=== PATIENT | male | born 1980 | race Caucasian/White ===

== ENCOUNTER 2024-07-20 00:14 | Emergency (ER) | payer MEDICAID, SELFPAY ==
--- NOTE | ~2024-07-20 | XR_ITS ---
EXAMINATION: XR HAND/WRIST, RIGHT CLINICAL INFORMATION: Pain COMPARISON: None available. TECHNIQUE: PA, lateral, and oblique views of the right hand and wrist. FINDINGS: The bones and soft tissues are normal. No fracture. A cyst is present in the navicular. Alignment is anatomic. Joint spaces are maintained. No erosions or soft tissue calcifications. XR/XR hand wrist RT IMPRESSION: Normal right hand and wrist. Electronically signed by: Charly Almazan MD 07/20/2024 01:20 AM NAVJOT HOLLAND
[2024-07-20 00:20] VITALS: BP 110/79; PULSE 91; RESP 16; TEMP 36.9; O2SAT 98; BMI 23.2
--- NOTE | 2024-07-20 03:14 | ED_ITS ---
HPI - Extremity Problem General Chief complaint: Extremity Injury, Upper Stated complaint: right hand injury Time Seen by Provider: 07/20/24 02:37 Source: patient Mode of arrival: ambulatory Limitations: no limitations History of Present Illness ED Provider: HPI Narrative: Apparently patient is trying to change the care manually put his hand between the machine tight spot 3 days ago since then complaining of pain in the right hand and wrist times swelling no deformity no other injuries Related Data Previous Rx's ?Medication ?Instructions ?Recorded ibuprofen 600 mg tablet 600 mg PO Q6H PRN fever or pain 07/20/24 #30 tabs oxycodone 5 mg tablet 5 mg PO Q6H PRN pain #20 tabs 07/20/24 Allergies Allergy/AdvReac Type Severity Reaction Status Date / Time mushroom Allergy Severe ANAPHYLAXIS Verified 07/20/24 00:24 onion [Onion] Allergy Severe ANAPHYLAXIS Verified 07/20/24 00:24 amoxicillin [Amoxicillin] Allergy Unknown RASH Verified 07/20/24 00:24 aspirin [Aspirin] Allergy Unknown DIFF Verified 07/20/24 00:24 BREATHING Penicillins Allergy Unknown RASH Verified 07/20/24 00:24 PEPPERS Allergy Severe ANAPHYLAXIS Uncoded 07/20/24 00:24 Review of Systems 2 Review of Systems: Yes all other systems are reviewed and are negative PMFSH Social History Social History Advance Directives: No Do you have a plan to hurt others: No Plan Physical Exam 2 Vital Signs: Vital Signs: Last Vital Signs Temp 98.5 F 07/20/24 03:36 Pulse 91 07/20/24 03:36 Resp 16 07/20/24 03:36 BP 110/79 07/20/24 03:36 Pulse Ox 98 07/20/24 03:36 O2 Del Method Room Air 07/20/24 03:36 BMI result Body Mass Index 23.2 Extrem: Elbow/forearm/wrist images: 1. Diffuse tenderness and soft tissue swelling no deformity neurovascular intact Medications Administered Discontinued Medications Generic Name Dose Route Start Last Admin Trade Name Freq PRN Reason Stop Dose Admin Oxycodone HCl 10 mg 07/20/24 03:14 07/20/24 03:30 Oxycodone Hcl Immed Release 5 Mg Tablet PO 07/20/24 03:15 10 mg ONCE ONE Administration Medical Decision Making Medical Decision Making [facility] Narrative: Patient with right hand/wrist contusion from working in the right spot wrist splint was applied pain medication was given x-ray negative for fracture Independent Interpretation I performed an independent interpretation of an: Plain X-Ray Interpretation: No fracture Discharge Plan Discharge Clinical Impression: Sprain and strain of wrist Patient Disposition: Home, Self-Care Instructions: Wrist Sprain (ED) Additional Instructions: Wear the splint for support Continue your pain medication Take ibuprofen for inflammation Prescriptions: New ibuprofen 600 mg tablet 600 mg PO Q6H PRN (Reason: fever or pain) Qty: 30 0RF oxycodone 5 mg tablet 5 mg PO Q6H PRN (Reason: pain) Qty: 20 0RF Rx Instructions: Partial Fill upon patient request. Interventions: ED Discharge Assessment Last Done: 07/20/24 03:36 Discharge Date/Time: 07/20/24 03:37 Print Language: Cymro
[2024-07-20] MEDS: oxyCODONE HCl Immed Release 5 MG TABLET 10 MG PO (03:30)
[2024-07-20 03:36] VITALS: BP 110/79; PULSE 91; RESP 16; TEMP 36.9; O2SAT 98
== END 2024-07-20 03:37 | disposition home or self-care (01) ==
PROVIDERS: Emergency Provider Internal Medicine; PCP Physician Assistant
DX: S63.501A Unspecified sprain of right wrist, initial encounter (principal); M25.531 Pain in right wrist; X58.XXXA Exposure to other specified factors, initial encounter; Y93.89 Activity, other specified; Y92.89 Other specified places as the place of occurrence of the external cause; Y99.8 Other external cause status
CPT/HCPCS: 29125; 73110; 73130; 99283; 99284

== ENCOUNTER 2025-03-10 18:40 | Emergency (ER) | payer MEDICAID, SELFPAY ==
--- NOTE | ~2025-03-10 | CT_ITS ---
CLINICAL HISTORY: periumbilical pain, eval for hernia CT abdomen and pelvis with contrast Comparison: None provided Findings: The lung bases are clear. The liver, gallbladder, spleen, pancreas, kidneys and adrenal glands are normal in appearance. There is wall thickening of the sigmoid colon and rectum over a fairly long segment. There also appears to be a segmental area of wall thickening in the ascending colon. Small bowel loops are normal caliber without bowel wall thickening. No small bowel obstruction. No abdominal wall hernia. No ascites. Normal appendix. No acute fracture. IMPRESSION: Segmental areas of wall thickening involving the ascending colon, sigmoid colon and rectum. Differential includes infectious or inflammatory colitis. This document has been electronically signed by: Chano Mancera MD on 03/11/2025 01:31:45
[2025-03-10 19:09] VITALS: BP 160/90; PULSE 111; RESP 16; TEMP 36.8; O2SAT 95; BMI 23.8
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
[2025-03-10 20:16] LABS: MANUAL DIFF FLAG NO
[2025-03-10 20:18] LABS: Hematocrit 42.7 % (42.0-52.0); Hemoglobin 14.6 g/dl (14.0-18.0); Imm Gran Abs Auto 0.02 X10*3/uL (0.00-0.03); Imm Gran Pct Auto 0.3 % (0.0-0.4); Lymphocytes Absolute Auto 1.8 X10*3/uL (1.2-4.9); Mean Corpuscular HGB Conc 34.2 g/dl (31.0-36.0); Mean Corpuscular Hemoglobin 30.5 pg (27.0-33.0); Mean Corpuscular Volume 89.1 fL (80.0-98.0); NRBC Abs Auto 0.000 X10*3/uL (0.0-0.012); NRBC Pct Auto 0.0 /100WBC (0.0-0.2); Platelet Count 267 X10*3/uL (160-400); Red Blood Count 4.79 X10*6/uL (4.60-5.80); White Blood Count 7.5 X10*3/uL (4.8-10.8)
[2025-03-10 20:31] LABS: Alanine Aminotransferase 13 U/L (0-40); Albumin Level 4.4 g/dL (3.5-5.0); Alkaline Phosphatase 63 U/L (39-117); Anion Gap 15 (12-20); Aspartate Amino Transferase 19 U/L (5-37); Blood Urea Nitrogen 16 mg/dL (9-16); Calcium 8.6 mg/dL (8.4-10.2); Carbon Dioxide 24 mmol/L (22-29); Chloride 104 mmol/L (96-108); Creatinine Clr Calc Pharmacy 89.9; Estimated Glomerular Filt Rate > 60; Lipase 18 U/L (8-78); Potassium 3.8 mmol/L (3.3-5.1); Sodium 139 mmol/L (135-145); Total Protein 7.1 g/dL (6.5-8.0)
[2025-03-10 22:27] VITALS: BP 124/98; PULSE 73; TEMP 36.8; O2SAT 98
--- NOTE | 2025-03-11 00:01 | PC.NURSE ---
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
[2025-03-11 00:10] LABS: Appearance Urine Clear; Glucose Urine UA Negative (Negative); PH 5.5 (5.0-9.0); Specific Gravity - Urine >= 1.030 (1.005-1.025)
[2025-03-11] MEDS: Lactated Ringers 1,000 ML 999 ML IV (00:28)
--- NOTE | 2025-03-11 00:59 | PC.NURSE ---
pt a&ox4, respirations even and unlabored. pt reports he developed onset of lower abdominal pain x3 days, reports the pain worsened today. pt reports burning with urination but denies blood and pain. pt reports no change in bowel movements. 20g placed in left ac and medicated per mar.
[2025-03-11 02:14] VITALS: BP 131/74; PULSE 78; RESP 20; TEMP -17.7; TEMP 0; O2SAT 98
== END 2025-03-11 02:17 | disposition home or self-care (01) ==
PROVIDERS: Nurse Practitioner Family; Emergency Provider Emergency Medicine; PCP Dentist General Practice
DX: K52.9 Noninfective gastroenteritis and colitis, unspecified (principal); R10.31 Right lower quadrant pain; R00.0 Tachycardia, unspecified
CPT/HCPCS: 36415; 74177; 80053; 81003; 83605; 83690; 85025; 96361; 96374; 99284; 99285; J1790; J7120

== ENCOUNTER → 2025-03-11 00:03 | Outpatient (BNV) | payer MEDICAID, SELFPAY | PROVIDERS: Emergency Provider Emergency Medicine; PCP Dentist General Practice; Visit Provider Radiology Diagnostic Radiology | DX: K52.89 Other specified noninfective gastroenteritis and colitis (principal) | CPT/HCPCS: 74177 ==